=== PATIENT | male | born 1960 | race Caucasian/White ===

== ENCOUNTER 2017-10-16 06:14 | Emergency (ER) | payer MEDICARE, MEDICAID ==
[~2017-10-16] VITALS: Ht 185.4 cm; Wt 88.5 kg
[2017-10-16 06:20] VITALS: BP 150/90
[2017-10-16] MEDS ORDERED: ROBAXIN-750750 MG PO (06:59)
[2017-10-16 07:05] VITALS: BP 150/90
--- NOTE | 2017-10-16 11:16 | Emergency Room Report ---
History of Present Illness General Chief Complaint: Pain Source: Patient Present Illness HPI 57-year-old male, history of chronic lesions on his neck, has been there for 15 months, presenting with neck pain and neck spasms. Patient states that the neck lesions have been there for a long time, sometimes they're itchy, states that he has seen multiple dermatologists, has just had a skin biopsy and it revealed cancerous cells but does not know what kind yet. States that he is now having some mild neck spasms for the last 4 days. Denies any headache, fever chills, no trauma Allergies: Coded Allergies: No Known Allergies (Unverified , 10/16/17) Patient History Past Medical History: see triage record Past Surgical History: none Pertinent Family History: none Reviewed Nursing Documentation: PMH: Agreed, PSxH: Agreed Nursing Documentation-PMH Past Medical History: No History, Except For Hx Cancer: Yes - clear cell carcinoma Review of Systems All Other Systems: negative except mentioned in HPI Physical Exam Vital Signs Date Time Temp Pulse Resp B/P (MAP) Pulse Ox O2 Delivery O2 Flow Rate FiO2 10/16/17 06:17 97.5 87 16 150/90 100 Room Air Sp02 EP Interpretation: reviewed, normal General Appearance: normal inspection, well appearing, no apparent distress, alert, GCS 15, non-toxic Head: normocephalic, atraumatic Eyes: bilateral eye normal inspection, bilateral eye PERRL, bilateral eye EOMI ENT: normal ENT inspection, normal pharynx, normal voice, moist mucus membranes Neck: full range of motion, supple, other - Scaly plaque like lesions on bilateral neck, no signs of infection, nontender, mild tenderness along the sternocleidomastoid on the right side, no torticollis, no midline tenderness Respiratory: normal inspection, lungs clear, normal breath sounds, no respiratory distress, no retraction, no wheezing, speaking full sentences, chest symmetrical Cardiovascular #1: normal inspection, regular rate, rhythm, normal capillary refill Cardiovascular #2: 2+ radial (R), 2+ radial (L) Gastrointestinal: normal inspection, non tender, soft, non-distended, no guarding Genitourinary: no CVA tenderness Musculoskeletal: normal inspection, back normal, normal range of motion, non- tender Neurologic: normal inspection, alert, oriented x3, responsive, sleeping bag filler III-XII nml as tested, motor strength/tone normal, sensory intact, normal gait, speech normal Psychiatric: normal inspection, judgement/insight normal, memory normal Skin: normal inspection, normal color, no rash, warm/dry, well hydrated, normal turgor Medical Decision Making Diagnostic Impression: Primary Impression: Neck muscle spasm Additional Impression: Skin lesion ER Course 57-year-old male with neck pain DDX: Cervical strain Skin lesions do not appear to be infected, already has followup with olive packer and primary care doctor Plan: None ER course: Patient has remained stable during ED stay. Disposition: Patient is to be discharged to home. Prescriptions given are Robaxin Patient is instructed to follow up with their primary care doctor within 5 days. Please note that this Emergency Department Report was dictated using [employer]ediatric physiotherapist technology software, occasionally this can lead to erroneous entry secondary to interpretation by the dictation equipment Last Vital Signs Date Time Temp Pulse Resp B/P (MAP) Pulse Ox O2 Delivery O2 Flow Rate FiO2 10/16/17 07:05 97.5 72 16 150/90 100 Room Air Disposition: HOME, SELF-CARE Condition: Serious Scripts Methocarbamol* (ROBAXIN-750*) 750 Mg Tablet 750 MG PO QID, #28 TAB 0 Refills Prov: Ulysses Parada M.D. 10/16/17 Referrals: NOT CHOSEN IPA/,REFERRING (PCP) Patient Instructions: Cervical Strain and Sprain With [facility] Additional Instructions: PLEASE FOLLOW UP WITH YOUR PRIMARY CARE DOCTOR IN 1 WEEK Ulysses Parada M.D. Oct 16, 2017 11:16
== END 2017-10-16 07:05 | disposition home or self-care (01) ==
LOC: EMR 07:00
DX: M62.838 Other muscle spasm (principal); L98.9 Disorder of the skin and subcutaneous tissue, unspecified; M54.2 Cervicalgia
CPT/HCPCS: 99283

== ENCOUNTER 2020-10-30 15:24 | Emergency (ER) | payer MEDICAID, MEDICARE ==
[~2020-10-30] VITALS: Ht 185.4 cm; Wt 83.9 kg
[~2020-10-30 15:24] MED LIST: ROBAXIN-750750 MG PO
--- NOTE | 2020-10-30 16:07 | Emergency Room Report ---
History of Present Illness General Chief Complaint: Seizure Source: Patient Present Illness HPI Disclaimer: Please note that this report is being documented using DRAGON technology. This can lead to erroneous entry secondary to incorrect interpretation by the dictating instrument. HPI: 60-year-old male history of HIV and substance abuse presents for evaluation of seizures. The patient states he has a history of seizure disorder causing focal shaking in his arms and legs. Reports these are becoming more frequent. He denies loss of consciousness, tongue biting, self micturition. Does not currently take anticonvulsant medications. He states he had only 1 generalized tonic-clonic seizure in the past and does not follow-up with neurology. History of HIV but is on retroviral therapy with undetectable viral levels and adequate CD4 counts according to patient. He follows at HIV clinic with Dr. Kelly. 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 Current smoker. Denies head injury. Denies headaches. Denies numbness or tingling or weakness. States episodes come on with shaking in the right arm that then progressed to the legs. These are becoming more frequent. Last only several seconds. PMH: Seizure, depression, substance abuse, HIV PSH: Gastric ulcer resection, unspecified neck surgery and skin grafts Allergies: Denied Social Hx: Regular crystal meth use, regular tobacco use, denies alcohol Allergies: Coded Allergies: No Known Allergies (Unverified , 10/16/17) COVID-19 Screening Contact w/high risk pt: No Experienced COVID-19 symptoms?: No COVID-19 Testing performed DATA ARCHITECT MANAGER: Yes COVID-19 Screening: Negative COVID-19 COVID-19 Testing Source: a month ago Nursing Documentation-PMH Hx Cancer: Yes - clear cell carcinoma History Of Psychiatric Problem: Yes - depression, anxiety Review of Systems All Other Systems: negative except mentioned in HPI Physical Exam Vital Signs Date Time Temp Pulse Resp B/P (MAP) Pulse Ox O2 Delivery O2 Flow Rate FiO2 10/30/20 15:47 98.1 96 20 103/61 (75) 94 Room Air General: Awake and alert, no acute distress HEENT: NC/AT. EOMI. PERRLA. Visual downey are full. No nystagmus. Facial expressions are symmetrical. No facial droop. Cardiovascular: RRR. S1 and S2 normal. No murmur appreciated Resp: Normal work of breathing. No cough, wheezing or crackles appreciated Abdomen: Abdomen is soft, nondistended. Nontender Skin: Intact. No abrasions, laceration or rash over the exposed skin. Areas of hypopigmentation around the neck and upper back MSK: Normal tone and bulk. Moving all extremities. No obvious deformity. There is no drift in the upper or lower extremities bilaterally. Neuro: Awake and alert. Mentating appropriately. Facial expression symmetrical. No dysarthria, no ataxia on [id number] or xuic-yt-dori testing. Sensation to light touch is intact over the upper and lower extremities. The patient has intact speech with good repetition, comprehension. Fund of knowledge is full. No aphasia, no neglect. NIH: 0 Medical Decision Making Diagnostic Impression: Primary Impression: Spasm Additional Impressions: Focal seizure AMANDEEP (acute kidney injury) ER Course 60-year-old male presents for evaluation of seizure-like activity. Differential includes is not limited to electrolyte abnormality, focal seizure disorder, intracranial mass, intracranial lesion, effects of substance abuse, degenerative neuro disease among others. EKG is nonischemic and has normal intervals. CT unremarkable. Labs show evidence of acute kidney injury with elevated BUN and creatinine as well as mild hypoglycemia. Patient given apple juice and started on IV fluids. Renal function on prior visit was within normal limits. Patient given 2 L IV fluids and BMP was rechecked showing some improvement but still values are outside of normal range. Patient but he declined stating he does not want to stay in the hospital at this time. He states he will drink plenty of fluids to continue flushing his system and follow-up with his doctor to repeat labs on an outpatient basis. I will start the patient on Keppra and he can follow-up with his PMD for referral to neurology for further testing regarding his involuntary focal muscle spasms. Seizure precautions discussed. Discussed reasons to return to the ER. He understands and agrees with the treatment will be discharged home. Laboratory Tests Test 10/30/20 16:10 10/30/20 19:10 White Blood Count 9.8 K/UL (4.8-10.8) Red Blood Count 4.58 M/UL (4.70-6.10) L Hemoglobin 14.1 G/DL (14.2-18.0) L Hematocrit 42.9 % (42.0-52.0) Mean Corpuscular Volume 94 FL (80-99) Mean Corpuscular Hemoglobin 30.8 PG (27.0-31.0) Mean Corpuscular Hemoglobin Concent 32.9 G/DL (32.0-36.0) Red Cell Distribution Width 13.1 % (11.6-14.8) Platelet Count 221 K/UL (150-450) Mean Platelet Volume 8.5 FL (6.5-10.1) Neutrophils (%) (Auto) 66.0 % (45.0-75.0) Lymphocytes (%) (Auto) 21.7 % (20.0-45.0) Monocytes (%) (Auto) 10.4 % (1.0-10.0) H Eosinophils (%) (Auto) 0.9 % (0.0-3.0) Basophils (%) (Auto) 1.0 % (0.0-2.0) Urine Color Yellow Urine Appearance Slightly cloudy Urine pH 5 (4.5-8.0) Urine Specific [place] 1.020 (1.005-1.035) Urine Protein 3+ (NEGATIVE) H Urine Glucose (UA) Negative (NEGATIVE) Urine Ketones Negative (NEGATIVE) Urine Blood 1+ (NEGATIVE) H Urine Nitrite Negative (NEGATIVE) Urine Bilirubin Negative (NEGATIVE) Urine Urobilinogen 1 MG/DL (0.0-1.0) H Urine Leukocyte Esterase 1+ (NEGATIVE) H Urine RBC 2-4 /HPF (0 - 0) H Urine WBC 2-4 /HPF (0 - 0) Urine Squamous Epithelial Cells Few /LPF (NONE/OCC) Urine Bacteria Few /HPF (NONE) Urine Hyaline Casts 0-2 /LPF (NONE) H Urine Granular Casts 0-2 /LPF (NONE) H Urine Waxy Casts 0-2 /LPF (NONE) H Urine Mucus Many /LPF (NONE/OCC) H Sodium Level 144 MMOL/L (136-145) 145 MMOL/L (136-145) Potassium Level 4.0 MMOL/L (3.5-5.1) 4.0 MMOL/L (3.5-5.1) Chloride Level 106 MMOL/L (98-107) 109 MMOL/L (98-107) H Carbon Dioxide Level 29 MMOL/L (21-32) 30 MMOL/L (21-32) Blood Urea Nitrogen 29 mg/dL (7-18) H 27 mg/dL (7-18) H Creatinine 3.4 MG/DL (0.55-1.30) H 2.8 MG/DL (0.55-1.30) H Estimated Glomerular Filtration Rate 18.7 mL/min (>60) 23.4 mL/min (>60) Glucose Level 62 MG/DL (74-106) L 99 MG/DL (74-106) Calcium Level 9.6 MG/DL (8.5-10.1) 9.0 MG/DL (8.5-10.1) Total Bilirubin 0.4 MG/DL (0.2-1.0) Aspartate Amino Transferase (AST) 16 U/L (15-37) Alanine Aminotransferase (ALT) 22 U/L (12-78) Alkaline Phosphatase 78 U/L (46-116) Total Creatine Kinase 158 U/L (26-308) Total Protein 7.2 G/DL (6.4-8.2) Albumin 3.6 G/DL (3.4-5.0) Globulin 3.6 g/dL Albumin/Globulin Ratio 1.0 (1.0-2.7) Salicylates Level 2.5 ug/mL (2.8-20) L Urine Opiates Screen Negative (NEGATIVE) Acetaminophen Level < 2 MCG/ML (10-30) L Urine Barbiturates Screen Negative (NEGATIVE) Phencyclidine (PCP) Screen Negative (NEGATIVE) Urine Amphetamines Screen Negative (NEGATIVE) Urine Benzodiazepines Screen Negative (NEGATIVE) Urine Cocaine Screen Negative (NEGATIVE) Urine Marijuana (THC) Screen Negative (NEGATIVE) Serum Alcohol < 3 mg/dL Anion Gap 6 mmol/L (5-15) EKG Diagnostic Results Troponin ordered: Yes When was troponin ordered?: Oct 30, 2020 EKG Time: 16:27 Rate: normal Rhythm: NSR ST Segments: no acute changes Other Impression Sinus rhythm, normal axis, normal intervals, QTC 403 ms, no ST segment changes. Unremarkable EKG. Rhythm Strip Diag. Results Rhythm Strip Time: 16:27 EP Interpretation: yes Rate: 90 Rhythm: NSR, no PVC's, no ectopy Last Vital Signs Date Time Temp Pulse Resp B/P (MAP) Pulse Ox O2 Delivery O2 Flow Rate FiO2 10/30/20 15:47 98.1 96 20 103/61 (75) 94 Room Air Disposition: HOME, SELF-CARE Condition: Stable Scripts Levetiracetam (KEPPRA) 500 Mg Tablet 500 MG ORAL EVERY 12 HOURS, #60 TAB 0 Refills Prov: Mt Cantor MD 10/30/20 Mt Cantor MD Oct 30, 2020 16:07
[2020-10-30 16:20] VITALS: BP 103/61
--- NOTE | 2020-10-30 16:20 | NUR ---
ED Nurse Note:pt. came from home, s/p seizure, A/Ox4 ambulatory, VSS, blood and urine sent to labs, EKG done, pt. went to CT scan
[2020-10-30 16:55] LABS: EOSINOPHILS % (AUTO) 0.9 % (0.0-3.0); HEMATOCRIT 42.9 % (42.0-52.0); HEMOGLOBIN 14.1 G/DL (14.2-18.0); LYMPHOCYTES % (AUTO) 21.7 % (20.0-45.0); MEAN CORPUSCULAR VOLUME 94 FL (80-99); MONOCYTES % (AUTO) 10.4 % (1.0-10.0); PLATELET COUNT 221 K/UL (150-450); RED BLOOD COUNT 4.58 M/UL (4.70-6.10); RED CELL DISTRIBUTION WIDTH 13.1 % (11.6-14.8); WHITE BLOOD COUNT 9.8 K/UL (4.8-10.8)
[2020-10-30 17:04] LABS: ALANINE AMINOTRANSFERASE 22 U/L (12-78); ALBUMIN 3.6 G/DL (3.4-5.0); ALKALINE PHOSPHATASE 78 U/L (46-116); ASPARTATE AMINO TRANSFERASE 16 U/L (15-37); BILIRUBIN,TOTAL 0.4 MG/DL (0.2-1.0); BLOOD UREA NITROGEN 29 mg/dL (7-18); CALCIUM 9.6 MG/DL (8.5-10.1); CHLORIDE 106 MMOL/L (98-107); CREATININE 3.4 MG/DL (0.55-1.30); SODIUM 144 MMOL/L (136-145)
--- NOTE | 2020-10-30 17:06 | Diagnostic Imaging Report ---
Indications: Seizures Technique: Spiral acquisitions obtained through the brain. Angled axial and coronal 5 x 5 mm slices were reconstructed. Total dose length product 1098 mGycm. CTDI vol(s) 53 mGy. Dose reduction achieved using automated exposure control Comparison: None. Findings: No acute intracranial hemorrhage or edema, mass effect, nor midline shift. Normal size ventricles and extra-axial CSF spaces. Normal correa-white differentiation. Intact calvarium. The mastoids are clear. Visualized orbits and sinuses are unremarkable. Impression: Negative The CT scanner at [facility] is accredited by the [employer] and the scans are performed using protocols designed to limit radiation exposure to as low as reasonably achievable to attain images of sufficient resolution adequate for diagnostic evaluation.
[2020-10-30 17:16] LABS: CARBON DIOXIDE 29 MMOL/L (21-32)
--- NOTE | 2020-10-30 17:20 | NUR ---
ED Nurse Note:2 apple juices provided for patient to increase glucose
[2020-10-30 17:29] LABS: CREATINE KINASE 158 U/L (26-308)
[2020-10-30 17:33] VITALS: BP 113/62
[2020-10-30 19:05] LABS: BILIRUBIN, URINE NEGATIVE (NEGATIVE); GLUCOSE, URINE (UA) NEGATIVE (NEGATIVE); KETONES,URINE NEGATIVE (NEGATIVE); LEUKOCYTE ESTERASE ,URINE 1+ (NEGATIVE); NITRITE,URINE NEGATIVE (NEGATIVE); PH,URINE 5 (4.5-8.0); PROTEIN,URINE 3+ (NEGATIVE); UROBILINOGEN,URINE 1 MG/DL (0.0-1.0)
--- NOTE | 2020-10-30 19:14 | NUR ---
ED Nurse Note: Recived care from [facility]
[2020-10-30 19:16] VITALS: BP 110/60
[2020-10-30 19:21] LABS: APPEARANCE,URINE SLIGHTLY CLOUDY; COLOR,URINE YELLOW
[2020-10-30 19:31] LABS: CREATININE 2.8 MG/DL (0.55-1.30)
[2020-10-30] MEDS ORDERED: KEPPRA500 M4 ORAL (19:46)
[2020-10-30 20:00] VITALS: BP 135/85
--- NOTE | 2020-10-30 20:19 | NUR ---
ER DISCHARGE NOTE: Patient is cleared to be discharged per ERMD, pt is aox4, on room air, with stable vital signs. pt was given dc and prescription instructions, pt was able to verbalize understanding, pt id band and iv site removed without complications. pt is able to ambulate with steady gait. pt took all belongings. Pt left in a private car as a passenger.
== END 2020-10-30 20:00 | disposition home or self-care (01) ==
LOC: EMR 16:00
DX: G40.209 Localization-related (focal) (partial) symptomatic epilepsy and epileptic syndromes with complex partial seizures, not intractable, without status epilepticus (principal); R25.2 Cramp and spasm; N17.9 Acute kidney failure, unspecified; B20 Human immunodeficiency virus [HIV] disease; F15.90 Other stimulant use, unspecified, uncomplicated; Z72.0 Tobacco use
CPT/HCPCS: 36415; 70450; 80048; 80053; 80307; 81003; 82550; 85025; 93005; 96360; 99284; G0480